=== PATIENT | female | born 1955 | race Caucasian/White ===

== ENCOUNTER 2024-09-15 13:24 | Outpatient (CLI) | payer MEDICARE, SELFPAY | END 2024-09-15 13:25 | disposition home or self-care (01) | LOC: NFLDREF 09-19 17:18 | PROVIDERS: Visit Provider Physician Assistant | DX: N39.0 Urinary tract infection, site not specified (principal); B96.20 Unspecified Escherichia coli [E. coli] as the cause of diseases classified elsewhere | CPT/HCPCS: 87086 ==